=== PATIENT | male | born 1945 | race Caucasian/White ===

== ENCOUNTER → 2020-03-08 | Outpatient (CLI) | payer MEDICARE ==
--- NOTE | 2020-03-08 16:36 | MR ---
EXAMINATION TYPE: MR brain wo/w con DATE OF EXAM: 03/08/2020 COMPARISON: NONE HISTORY: Patient had a couple bouts of Dizziness with some Left eye disturbance, floaters in the eye. Hx of Testicular Cancer Many years ago. TECHNIQUE: Multiplanar, multisequence images of the brain and brainstem is performed without and with IV contras t, utilizing 9 mL intravenous Gadavist . FINDINGS: Diffusion weighted images demonstrate no evidence of a recent infarct or other diffusion ab normality. There is no worrisome extra-axial fluid collection. There is 1.0 cm focus of low T1 and T 2 signal could reflect focal calcification or lipoma along the interhemispheric fissure causing mass effect in the posterior central left frontal lobe axial image 28. There is diffuse ventricular and funk lcal prominence with scattered foci of T2 hyperintensity seen throughout the superficial deep and per iventricular white matter. Findings presumed on the basis of product of chronic small vessel ischemic change in patient of this age. Midline structures demonstrate normal morphology. The craniocervical junction appears within normal limits. Post contrast images demonstrate no abnormal enhancement. The dural venous sinuses appear p atent. Mild Mucosal thickening involving ethmoid sinuses bilaterally. Fluid nearly completely filling the left sphenoid sinus. Mild mucosal thickening inferior left maxillary sinus. Globes are intact bi laterally. Suprasellar cistern is maintained. No suspicious fluid signal bilateral mastoid air cells. IMPRESSION: There is mild diffuse age-related cerebral atrophy and moderate to borderline severe obstetrical tech diane small vessel ischemic changes. Acute on chronic paranasal sinus disease noted as detailed above. No suspicious enhancing masses are present.
== END | disposition home or self-care (01) ==
LOC: RADMRIMAIN 15:15
PROVIDERS: ATTEND Internal Medicine Geriatric Medicine
DX: G31.1 Senile degeneration of brain, not elsewhere classified (principal)
CPT/HCPCS: 70553; A9585

== ENCOUNTER → 2020-03-16 | Outpatient (CLI) | payer MEDICARE ==
--- NOTE | 2020-03-16 13:29 | US ---
EXAMINATION TYPE: US carotid duplex BILAT DATE OF EXAM: 03/16/2020 COMPARISON: NONE CLINICAL HISTORY: G45.9 TIA. TIA EXAM MEASUREMENTS: RIGHT: Peak Systolic Velocity (PSV) cm/sec ----- Right CCA: 77.9 ----- Right ICA: 86.5 ----- Right ECA: 99.7 ICA/CCA ratio: 1.1 RIGHT: End Diastole cm/sec ----- Right CCA: 15.4 ----- Right ICA: 27.0 ----- Right ECA: 15.4 LEFT: Peak Systolic Velocity (PSV) cm/sec ----- Left CCA: 69.2 ----- Left ICA: 82.3 ----- Left ECA: 115.7 ICA/CCA ratio: 1.2 LEFT: End Diastole cm/sec ----- Left CCA: 18.3 ----- Left ICA: 27.0 ----- Left ECA: 12.5 VERTEBRALS (direction of flow): Right Vertebral: Antegrade Left Vertebral: Antegrade Rhythm: Normal Grayscale, color Doppler, spectral Doppler imaging performed of the carotid arteries. Waveform analys is does not show significant stenosis of the internal carotid arteries. No significant stenosis seen IMPRESSION: No hemodynamic significant stenosis of the proximal internal carotid arteries by Doppler criteria, an indirect measurement of carotid stenosis
--- NOTE | 2020-03-19 18:57 | ECHOF ---
Referral Reason:R55 syncope and collapse MEASUREMENTS -------- HEIGHT: 177.8 cm WEIGHT: 92.1 kg BP: RVIDd: 3.5 cm (< 3.3) IVSd: 1.3 cm (0.6 - 1.1) LVIDd: 4.4 cm (3.9 - 5.3) LVPWd: 1.3 cm (0.6 - 1.1) IVSs: 1.7 cm LVIDs: 3.6 cm LVPWs: 2.0 cm LA Diam: 4.0 cm (2.7 - 3.8) LAESV Index (A-L): 26.38 ml/m Ao Diam: 3.0 cm (2.0 - 3.7) AV Cusp: 2.4 cm (1.5 - 2.6) MV EXCURSION: 17.896 mm (> 18.000) MV EF SLOPE: 63 mm/s (70 - 150) EPSS: 1.0 cm MV E Elmer: 0.57 m/s MV DecT: 310 ms MV A Elmer: 0.92 m/s MV E/A Ratio: 0.62 RAP: 5.00 mmHg RVSP: 19.91 mmHg FINDINGS -------- Sinus rhythm. This was a technically adequate study. The left ventricular size is normal. There is mild concentric left ventricular hypertrophy. Overa ll left ventricular systolic function is low-normal with, an EF between 50 - 55 %. The right ventricle is mildly enlarged. Normal LA size by volume 22+/-6 ml/m2. The right atrium is normal in size. Interatrial and interventricular septum intact. Aortic valve is trileaflet and is mildly thickened. Mild mitral annular calcification present. There is trace mitral regurgitation. Mild tricuspid regurgitation present. Right ventricular systolic pressure is normal at < 35 mmHg. Trace/mild (physiologic) pulmonic regurgitation. The aortic root size is normal. Normal inferior vena cava with normal inspiratory collapse consistent with estimated right atrial pre ssure of 5 mmHg. There is no pericardial effusion. CONCLUSIONS -------- 1. Sinus rhythm. 2. This was a technically adequate study. 3. The left ventricular size is normal. 4. There is mild concentric left ventricular hypertrophy. 5. Overall left ventricular systolic function is low-normal with, an EF between 50 - 55 %. 6. The right ventricle is mildly enlarged. 7. Normal LA size by volume 22+/-6 ml/m2. 8. The right atrium is normal in size. 9. Interatrial and interventricular septum intact. 10. Aortic valve is trileaflet and is mildly thickened. 11. Mild mitral annular calcification present. 12. There is trace mitral regurgitation. 13. Mild tricuspid regurgitation present. 14. Right ventricular systolic pressure is normal at < 35 mmHg. 15. Trace/mild (physiologic) pulmonic regurgitation. 16. The aortic root size is normal. 17. Normal inferior vena cava with normal inspiratory collapse consistent with estimated right atrial pressure of 5 mmHg. 18. There is no pericardial effusion. [employer]: Consuelo Myers RDCS
== END | disposition home or self-care (01) ==
LOC: RADECHMAIN 12:02
PROVIDERS: ATTEND Internal Medicine Geriatric Medicine
DX: I08.1 Rheumatic disorders of both mitral and tricuspid valves (principal); G45.9 Transient cerebral ischemic attack, unspecified; R55 Syncope and collapse
CPT/HCPCS: 93225; 93226; 93306; 93880

== ENCOUNTER → 2023-10-23 | Outpatient (CLI) | payer MEDICARE ==
--- NOTE | 2023-10-23 12:04 | XR ---
EXAMINATION TYPE: XR lumbosacral spine min 4V DATE OF EXAM: 10/23/2023 COMPARISON: None HISTORY: Pain TECHNIQUE: 5 views lumbar spine FINDINGS: There are 5 lumbar-type vertebral bodies. Pedicles are intact. Vacuum disc phenomenon is pr esent L2-L3. Mild facet changes are within the lower lumbar spine. There is loss of disc height at L5 -S1. Disc space narrowing is present at L2-3. Spondylosis is present. IMPRESSION: 1. Degenerative disc changes L2-3 and L5-S1. 2. Mild spondylosis
== END | disposition home or self-care (01) ==
LOC: RADXRMAIN 10:22
PROVIDERS: ATTEND Internal Medicine Geriatric Medicine
DX: M47.817 Spondylosis without myelopathy or radiculopathy, lumbosacral region (principal); M51.37 Other intervertebral disc degeneration, lumbosacral region
CPT/HCPCS: 72110

== ENCOUNTER → 2024-04-09 | Outpatient (CLI) | payer MEDICARE ==
--- NOTE | 2024-04-10 14:16 | MR ---
EXAMINATION TYPE: MR lumbar spine wo/w con DATE OF EXAM: 04/09/2024 7:34 PM CLINICAL INDICATION:Male, 78 years old with history of M54.50 LOW BACK PAIN, UNSPECIFIED; PHH, Low ba ck pain that radiates down right leg. COMPARISON: None TECHNIQUE: Multi planar, multi sequence imaging was performed utilizing: T1-weighted, T2-weighted, a nd turbo inversion recovery imaging of the lumbar spine. IV Contrast: 8.5 cc Gadavist. (None if empty) FINDINGS: Alignment: The lumbar vertebral bodies have preserved heights and alignment. Cord: The conus medullaris and the distal spinal cord appear unremarkable with regards to their signa l intensity and morphology. Bones/Discs: Moderate degeneration changes throughout the spine worse at L5-S1 with partial bony fusi on of the vertebrae vertebral bodies. There is also severe degeneration changes at L2-L3 adjoining en dplates. Modic endplate changes are present L5-S1 and L2-L3. Disc space narrowing osteophyte formatio n facet joint arthropathy seen throughout the spine. Reactive postcontrast enhancement of the drainin g endplates of L2-L3. Some reactive postcontrast enhancement around the L4-L5 facet joints. T12-L1: No evidence of significant spinal canal stenosis or neural foraminal stenosis. L1-L2: No evidence of significant spinal canal stenosis or neural foraminal stenosis. L2-L3: Disc bulge and facet joint arthropathy result in moderate spinal canal and mild bilateral neur al foraminal stenosis. L3-L4: Disc bulge and facet joint arthropathy result in mild spinal canal and moderate to severe bila teral neural foraminal stenosis. L4-L5: Disc bulge and facet joint arthropathy result in mild spinal canal and severe bilateral neural foraminal stenosis. L5-S1: The disc has a rounded posterior morphology without significant spinal canal stenosis. Facet j oint arthropathy with moderate to severe bilateral neural foraminal stenosis. No significant spinal canal or neural foraminal stenosis in the remainder of the visualized levels. Other findings: None. IMPRESSION: 1. Moderate spinal canal stenosis at L2-L3. 2. Multilevel disc degeneration with associated osteoarthritic changes worse at L2-L3 and L5-S. 3. Neural foraminal stenosis worse at L4-5 with severe bilateral, L3-L4, L5-S1 with moderate to hermila re bilateral neural foraminal stenosis. 4. Reactive degeneration enhancement around the L4-L5 facet joints. No additional abnormal postcont rast enhancement.
== END | disposition home or self-care (01) ==
LOC: RADMRIMAIN 18:36
PROVIDERS: ATTEND Internal Medicine Geriatric Medicine
DX: M99.73 Connective tissue and disc stenosis of intervertebral foramina of lumbar region (principal); M48.061 Spinal stenosis, lumbar region without neurogenic claudication; M47.26 Other spondylosis with radiculopathy, lumbar region
CPT/HCPCS: 72158; A9585